=== PATIENT | male | born 1970 | race Caucasian/White ===

== ENCOUNTER 2023-02-13 04:43 | Day surgery (SDC) | payer OTHER ==
[2023-02-09 15:34] VITALS: BMI 27.8
[2023-02-13 10:36] VITALS: TEMP 97.8
[2023-02-13 11:10] VITALS: BP 120/71; PULSE 58; RESP 20
== END 2023-02-13 11:18 | disposition home or self-care (01) ==
LOC: JASU-ENDO 04:43
PROVIDERS: ATTEND Internal Medicine Gastroenterology
PROC: 0DBP8ZX Excision of Rectum, Via Natural or Artificial Opening Endoscopic, Diagnostic (ICD-10-PCS; principal; 2023-02-13 10:00)
DX: Z12.11 Encounter for screening for malignant neoplasm of colon (principal); K52.9 Noninfective gastroenteritis and colitis, unspecified; K64.8 Other hemorrhoids; I10 Essential (primary) hypertension
CPT/HCPCS: 88305-TC

== ENCOUNTER 2024-01-14 04:27 | Day surgery (SDC) | payer OTHER ==
[2024-01-14 13:14] VITALS: RESP 18; BMI 27.3
[2024-01-14] MEDS ORDERED: MIDAZOLAM HCL 2 MG/2 ML SINGLE DOSE VIAL ONE (17:03)
[2024-01-14 17:42] VITALS: BP 144/97; PULSE 72; TEMP 97.8
== END 2024-01-14 20:05 | disposition home or self-care (01) ==
LOC: JASU-SURG 04:27
PROVIDERS: ATTEND Urology
PROC: 0TF4XZZ Fragmentation in Left Kidney Pelvis, External Approach (ICD-10-PCS; principal; 2024-01-14 15:00)
DX: N20.0 Calculus of kidney (principal)